=== PATIENT | female | born 1995 | race Caucasian/White ===

== ENCOUNTER 2017-04-22 12:51 | Inpatient (IN) | payer MEDICAID ==
[~2017-04-22] VITALS: Ht 154.9 cm; Wt 64.0 kg
[~2017-04-22 12:51] MED LIST: IBUPROFEN600 MG PO; PERCOCET 5/3251 TA1 PO; PRENATAL COMPLE1 TAB PO
[2017-04-22 14:38] LABS: HEMOGLOBIN 12.1 g/dL (12-16); MCH 32.6 pg (26.0-34.0); MCHC 34.6 g/dL (31.0-37.0); MCV 94.3 fL (80.0-100.0); MEAN PLATELET VOLUME 10.2 fL (7.4-10.4); RBC 3.71 10x6/uL (4.00-5.40); RDW 13.1 % (11.5-14.5); WBC 11.5 10x3/uL (4.8-10.8)
--- NOTE | 2017-04-22 19:10 | NUR ---
BEDSIDE REPORT REC'D FROM Brenden MIRELES RN. PT REC'D IN HIGH [place] POSITION WATCHING TV AND TEXTING. PT STATES THAT SHE JUST COMPLETED SHOWERING. REQUESTS THAT PIV BE REMOVED FROM LEFT WRIST STATING THAT IT IS HURTING EVERY TIME SHE MOVES HER HAND. FUNDUS FIRM, SMALL AMT RUBRA LOCHIA NOTED TO PERIPAD, NO CLOTS PRESENT. PT STATES THAT SHE IS VOIDING WITHOUT DIFFICULTY. PIV REMOVED PER PT REQUEST. BROUGHT BACK TO ROOM BY NBN RN. PT REQUESTS TO KENYON WITH AND FEED INFANT PRIOR TO HAVING ASSESSMENT COMPLETED. WILL CONT TO MONITOR AND ASSIST PRN. BED LEFT IN LOW POSITION WITH UPPER SIDE RAILS RAISED. CL AND PHONE PLACED WITHIN PT REACH. INSTRUCTED TO USE CL FOR NEEDS, VERBALIZED UNDERSTANDING. DENIES PAIN AND DISCOMFORT AT THIS TIME.
[2017-04-22 20:09] VITALS: BP 105/59
--- NOTE | 2017-04-22 20:09 | NUR ---
ROUNDS MADE PT CONTINUES TO HOLD AND KENYON WITH HIM. VSS. FUNDUS REMAINS FIRM, U2 WITH SMALL AMT RUBRA LOCHIA, NO CLOTS. PT STATES THAT SHE IS HAVING A DIFFICULT TIME WAKING TO FEED HIM. RN ASSISTED WITH GETTING INFANT AWAKE. GOOD LATCH TO BOTTLE NIPPLE NOTED. DEMONSTRATED TO PT THAT THE AIR BUBBLES IN THE BOTTLE MEANT THAT HE WAS SUCKING ALONG WITH THE SWALLOW. INSTRUCTED TO BURP EVERY 10 MLS, VERBALIZED UNDERSTANDING. PT REPORTS THAT SHE IS HAVING SOME DISCOMFORT WITH SITTING. ICE PACK PROVIDED, STATES THAT PAIN IS 2-3/10 BUT ONLY WHEN SITTING, DENIES NEED FOR MEDICATION AT THIS TIME. PT TO CALL RN VIA CL WHEN COMPLETES FEEDING. FOR REST OF ASSESSMENT TO BE COMPLETED. BED REMAINS IN LOW POSITION WITH UPPER SIDE RAILS RAISED X2. CL AND PHONE WITHIN REACH.
--- NOTE | 2017-04-22 20:59 | NUR ---
MILK OF MAG GIVEN PER ORDERS. PT CONTINUES TO KENYON WITH INFANT. STATES THAT ICE PACK HELPED WITH PERINEAL DISCOMFORT. CONTINUES TO RATE DISCOMFORT TO PERINUM AT 2-3/10, DENIES NEED FOR FURTHER INTERVENTION AT THIS TIME. BED REMAINS IN LOW POSITION WITH UPPER SIDE RAILS RAISED X2. CL AND PHONE WITHIN REACH. PT REQUESTS RN TAKE BACK TO NBN UNTIL NEXT FEEDING D/T HER GOING TO SLEEP. INFANT BACK TO NBN. WILL CONT TO MONITOR AND ASSIST PRN.
--- NOTE | 2017-04-22 21:10 | NUR ---
SHIFT ASSESSMENT COMPLETED. MILD EDEMA NOTED TO BILATERAL LABIA, BOWEL SOUNDS PRESENT AND ACTIVE X4. PT STATES THAT SHE IS VOIDING WITHOUT DIFFICULTY. DENIES NEEDS AT THIS TIME. WILL CONTINUE TO MONITOR AND ASSIST PRN.
--- NOTE | 2017-04-22 21:48 | NUR ---
ROUNDS MADE. PT RESTING WITH EYES CLOSED. RESPIRATIONS REGULAR. NO S/S OF DISTRESS NOTED. BED REMAINS IN LOW POSITION WITH UPPER SIDE RAILS RAISED X2. CL AND PHONE WITHIN REACH. WILL CONT TO MONITOR AND ASSIST PRN.
[2017-04-22 23:03] VITALS: BP 109/62; Ht 154.9 cm; Wt 64.0 kg
--- NOTE | 2017-04-22 23:15 | NUR ---
INFANT TAKEN TO PT PER REQUEST. ADMISSION ASSESSMENT COMPLETED. INFANT HANDED TO PT. INSTRUCTED ON NEXT FEEDING AT 2330, VERBALIZED UNDERSTANDING. PAIN REMAINS 2-3/10, DENIES NEED FOR INTERVENTION. BED REMAINS IN LOW POSITION WITH UPPER SIDE RAILS RAISED X2. CL AND PHONE WITHIN REACH. WILL CONT TO MONITOR AND ASSIST PRN.
--- NOTE | 2017-04-23 00:15 | NUR ---
ROUNDS MADE. PT STATES THAT PERINUM IS BURNING AND STINGING AT EPIOSTOMY SITE AND HAS WORSENED. DISCUSSED ORDERS FOR TUX, DERMAPLAST AND EPIFOAM. PT REQUESTS ALL 3 PRODUCTS. INSTRUCTED ON USE, VERBALIZED UNDERSTANDING, STATES THAT SHE WILL CALL RN IF SHE NEEDS HELP WITH USE. STATES THAT SHE WILL USE THEM WHEN SHE GETS UP TO THE BATHROOM. CURRENTLY BONDING WITH INFANT. DENIES ADDITIONAL NEEDS. BED IN LOW POSITION WITH UPPER SIDE RAILS RAISED X2. CL AND PHONE WITHIN REACH. WILL CONT TO MONITOR AND ASSIST PRN.
--- NOTE | 2017-04-23 02:01 | NUR ---
ROUNDS MADE. PT RESTING QUIETLY WITH EYES CLOSED. RESPIRATIONS REGULAR, NO S/S OF DISTRESS NOTED. BED IN LOW POSITION WITH UPPER SIDE RAILS RAISED X2. CL AND PHONE WITHIN REACH. WILL CONT TO MONITOR AND ASSIST PRN.
--- NOTE | 2017-04-23 04:06 | NUR ---
ROUNDS MADE. PT RESTING WITH EYES CLOSED. RESPIRATIONS REGULAR, NO S/S OF DISTRESS NOTED. BED IN LOW POSITION WITH UPPER SIDE RAILS RAISED X2. CL AND PHONE WITHIN PT REACH. WILL CONT TO MONITOR AND ASSIST PRN.
[2017-04-23 05:55] LABS: HEMATOCRIT 34.2 % (36.0-48.0); HEMOGLOBIN 11.3 g/dL (12-16); MCH 31.9 pg (26.0-34.0); MCV 96.6 fL (80.0-100.0); MEAN PLATELET VOLUME 9.8 fL (7.4-10.4); RBC 3.54 10x6/uL (4.00-5.40); RDW 13.4 % (11.5-14.5)
--- NOTE | 2017-04-23 06:27 | NUR ---
PAIN 5/10 TO LOWER BACK AND ABD CRAMPING. REQUESTS MOTRIN. GIVEN PER REQUEST. SODA, ICE PACK FOR BACK, ICE WATER AND ICE GIVEN PER REQUEST. INFANT BROUGHT TO PATIENT PER REQUEST. DENIES ADDITIONAL NEEDS. BED REMAINS IN LOW POSITION WITH UPPER SIDE RAILS RAISED X2. CL AND PHONE WITHIN REACH. WILL CONT TO MONITOR AND ASSIST PRN.
--- NOTE | 2017-04-23 07:15 | OP ---
PATIENT NAME: DIONISIO SHIRLEY MEDICAL RECORD: [id number] LOCATION:[id number] ADMISSION DATE:04/22/17 SURGEON: ALBERTO TROTTER MD DATE OF OPERATION: 04/22/2017 Delivery Note Spontaneous vaginal delivery of male weighing 7 pounds 6 ounces, 9 and 9 Apgars, epidural anesthesia, second-degree midline episiotomy repaired with 2-0 chromic suture. Spontaneous delivery of intact-appearing placenta. ESTIMATED BLOOD LOSS: 400 cc. COMPLICATIONS OF DELIVERY: None. TRANSINT:[id number] Voice Confirmation ID: [id number] DOCUMENT ID: [id number] ALBERTO TROTTER MD at 0715 CC: [id number] DICTATION DATE: 04/22/17 1525 COLORER MACHINE: 04/23/17 0133 ADM IN [facility] [address] [id number]
--- NOTE | 2017-04-23 08:15 | NUR ---
DR TROTTER VISITED EARLIER. PT CURRENTLY UP IN BATHROOM. WILL COMPLETED ASSESSMENT WHEN PT RETURNS TO BED. PLAN DC THIS AM AND HOME WHEN INFANT DC'D AT 24 HOURS.
--- NOTE | 2017-04-23 08:30 | NUR ---
RETURNED TO BED. DENIES PROBLEMS AT THIS TIME. INFANT IN ARMS BOTTLEFEEDING. DESIRES TDAP. KNOWS HOW TO USE SITZ BATH. 2/10 ON PAIN SCALE IN LOW BACK. STATES "IT FEELS BETTER SINCE THE IBUPROFEN AND USING THE ICE PACK". SIDE RAILS UP X 2, CALL LIGHT IN REACH.
[2017-04-23 08:37] VITALS: BP 111/57
--- NOTE | 2017-04-23 09:07 | NUR ---
SHIFT ASSESSMENT WAS COMPLETED. U/3 FIRM MIDLINE RUBRA SMALL TO MOD. DC TEACHING COMPLETED. VERBAL AND WRITTEN INFORMATION GIVEN ON ROUTINE PP CARE, PP DEPRESSION, SIGNS OF INFECTION, COMMUNITY RESOURCES, TDAP AND FOLLOW-UP. VERBALIZED UNDERSTANDING. HAS BEEN RECEIVING IBUPROPHEN 600 MG Q 6 HRS/PAIN. INFANT IN ROOM. PROGRAMMER ANALYST VISITED. SIDE RAILS UP X 2 CALL LIGHT IN REACH. SCHEDULED F/U APPOINTMENT FOR MAY 26 AT 1020.
--- NOTE | 2017-04-23 09:25 | NUR ---
RETURNED TO BED AFTER ATTEMPING TO VOID IN BATHROOM. WAS ASSISTED BY Brenden BADILLO RN AND PT FAMILY. CURRENTLY PUMPING AND FALLING ASLEEP. ASKED PT REGARDING PAIN SCALE SAYS SHE IS NOW 7/10 CRAMPING. PLANS TO TAKE NAP, SHOWER, THEN PUMP AGAIN. DISCUSSED PUMPING VS ACTUALLY IN EARLY PERIOD WITH PATIENT AND FAMILY. INFANT IN ROOM IN CRIB. SIDE RAILS UP X 2, CALL LIGHT IN REACH. SCDS IN PLACE.
--- NOTE | 2017-04-23 10:10 | NUR ---
SITTING UP IN CHAIR WATCHING TV. DESIRES TDAP AFTER READING INFORMATION AND DISCUSSING. TDAP GIVEN IM IN RIGHT DELTOID WITHOUT DIFFICULTY. COMPLETED DC TEACHING. WRITTEN INFORMATION AND RX FOR MOTRIN 600 MG PO QID GIVEN TO PATIENT. INSTRUCTED ON MEDICATON ADMINISTRATION. VERBALIZED UNDERSTANDING. TO CALL IF ANYTHING IS NEEDED. WAITING ON DC AT 24 HOURS PP.
--- NOTE | 2017-04-23 12:07 | NUR ---
ROUNDS MADE PER THIS RN. PT CURRENTLY SITTING UP IN BED WATCHING TV. DENIES PAIN OR NEEDS AT THIS TIME.
--- NOTE | 2017-04-23 13:33 | NUR ---
UP AD PALMA. VISITORS TO ROOM PER PT REQUEST. DENIES NEEDING ANYTHING AT THIS TIME. WAITING ON DC HOME.
--- NOTE | 2017-04-23 14:45 | NUR ---
SITTING ON EDGE OF BED HOLDING INFANT. READY TO GO HOME. ITEMS PACKED. WAITING ON "BLOOD TEST" FOR INFANT. NO REQUESTS AT THIS TIME. OFFERED MOTRIN FOR LBP. DECLINES AT THIS TIME.
--- NOTE | 2017-04-23 15:50 | NUR ---
DC'D VIA WHEELCHAIR PER Shania BARBOZA RN. IN CARSEAT. ALL BELONGINGS REMOVED FROM ROOM. HAS WRITTEN INSTRUCTIONS AND PRESCRIPTION. FAMILY MEMBER PRESENT AND WILL DRIVE PT HOME.
[2017-04-24 06:18] LABS: RAPID PLASMA REAGIN Non Reactive (Non Reactive)
== END 2017-04-23 15:50 | disposition home or self-care (01) | DRG 775 ==
LOC: D.LDO 12:51 → D.LD 13:08
PROVIDERS: ADMIT Obstetrics & Gynecology
PROC: 10E0XZZ Delivery of Products of Conception, External Approach (ICD-10-PCS; principal; 2017-04-22)
PROC: 0W8NXZZ Division of Female Perineum, External Approach (ICD-10-PCS; 2017-04-22)
DX: O80 Encounter for full-term uncomplicated delivery (principal); Z3A.00 Weeks of gestation of pregnancy not specified; Z37.0 Single live birth